=== PATIENT | female | born 1995 | race African-American/Black ===

== ENCOUNTER 2017-03-07 11:31 | Inpatient (IN) | payer OTHER ==
[~2017-03-07] VITALS: Ht 161.3 cm; Wt 68.9 kg
[2017-03-07 11:47] VITALS: BP 119/72; PULSE 65; RESP 15; TEMP 98; O2SAT 99
[2017-03-07 12:03] VITALS: BP 121/71; PULSE 70; RESP 18; TEMP 97.8; O2SAT 100
--- NOTE | 2017-03-07 14:09 | PD ---
HPI Chief Complaint: Suicide Ideation/Attempt Time Seen by Provider: 13:49 Travel History International Travel<30 days: No Contact w/Intl Traveler<30days: No Traveled to known affect area: No History of Present Illness HPI 21-year-old female presents to the emergency Department under Valdez act for depression, cutting herself. Patient states she has not cut herself before. She has superficial lacerations to the right forearm. She states she believes the symptoms. She states her tetanus immunization is up-to-date. Patient is tearful my exam. She will not tell me why she is depressed or crying. She does deny any suicidal or homicidal ideations to me. She states she smokes marijuana, denies any other illegal drugs. She does smoke injury go occasionally. She has no medical complaints at this time. She has no medical problems and takes no prescribed medications. She denies . [facility] Past Medical History LMP: 03/05/17 Social History Alcohol Use: Yes Tobacco Use: Yes Substance Use: Yes Allergies-Medications (Allergen,Severity, Reaction): Coded Allergies: No Known Allergies (Unverified , 03/07/17) Reported Meds & Prescriptions Reported Meds & Active Scripts Active No Active Prescriptions or Reported Medications Review of Systems Except as stated in HPI: all other systems reviewed are Neg Physical Exam Narrative GENERAL: Well-nourished, well-developed female patient, ambulatory. Afebrile. SKIN: Focused skin assessment warm/dry. Patient has superficial lacerations to right forearm that are not amenable to sutures. HEAD: Normocephalic. Atraumatic. EYES: No scleral icterus. No injection or drainage. NECK: Supple, trachea midline. No JVD or lymphadenopathy. CARDIOVASCULAR: Regular rate and rhythm without murmurs, gallops, or rubs. RESPIRATORY: Breath sounds equal bilaterally. No accessory muscle use. Lungs sounds are clear to auscultation. GASTROINTESTINAL: Abdomen soft, non-tender, nondistended. MUSCULOSKELETAL: No cyanosis, or edema. PSYCHIATRIC: No delusional thought processes. No hallucinations. Data Data Last Documented VS Vital Signs Date Time Temp Pulse Resp B/P (MAP) Pulse Ox O2 Delivery O2 Flow Rate FiO2 03/07/17 12:03 97.8 70 18 121/71 (88) 100 Room Air Orders Orders Complete Blood Count With Diff (03/07/17 13:48) Comprehensive Metabolic Panel (03/07/17 13:48) Beta Hcg (Quant/Titer) (03/07/17 13:48) Psych Screen (03/07/17 13:48) Drug Screen, Random Urine (03/07/17 13:48) Alcohol (Ethanol) (03/07/17 13:48) Labs Laboratory Tests Test 03/07/17 11:42 03/07/17 14:42 Urine Opiates Screen NEG Urine Barbiturates Screen NEG Urine Amphetamines Screen NEG Urine Benzodiazepines Screen NEG Urine Cocaine Screen NEG Urine Cannabinoids Screen POS White Blood Count 6.1 TH/MM3 Red Blood Count 4.25 MIL/MM3 Hemoglobin 11.2 GM/DL Hematocrit 35.1 % Mean Corpuscular Volume 82.7 FL Mean Corpuscular Hemoglobin 26.4 PG Mean Corpuscular Hemoglobin Concent 31.9 % Red Cell Distribution Width 15.1 % Platelet Count 245 TH/MM3 Mean Platelet Volume 8.9 FL Neutrophils (%) (Auto) 53.7 % Lymphocytes (%) (Auto) 36.7 % Monocytes (%) (Auto) 7.9 % Eosinophils (%) (Auto) 1.4 % Basophils (%) (Auto) 0.3 % Neutrophils # (Auto) 3.3 TH/MM3 Lymphocytes # (Auto) 2.3 TH/MM3 Monocytes # (Auto) 0.5 TH/MM3 Eosinophils # (Auto) 0.1 TH/MM3 Basophils # (Auto) 0.0 TH/MM3 CBC Comment DIFF FINAL Differential Comment Blood Urea Nitrogen 12 MG/DL Creatinine 0.69 MG/DL Random Glucose 80 MG/DL Total Protein 7.5 GM/DL Albumin 3.8 GM/DL Calcium Level 8.8 MG/DL Alkaline Phosphatase 58 U/L Aspartate Amino Transf (AST/SGOT) 18 U/L Alanine Aminotransferase (ALT/SGPT) 22 U/L Total Bilirubin 0.4 MG/DL Sodium Level 141 MEQ/L Potassium Level 3.6 MEQ/L Chloride Level 111 MEQ/L Carbon Dioxide Level 23.8 MEQ/L Anion Gap 6 MEQ/L Estimat Glomerular Filtration Rate 133 ML/MIN Human Chorionic Gonadotropin, Quant LESS THAN 1 MIU/ML Ethyl Alcohol Level LESS THAN 3 MG/DL MDM Medical Decision Making Medical Screen Exam Complete: Yes Emergency Medical Condition: Yes Medical Record Reviewed: Yes Differential Diagnosis Depression versus anxiety versus substance abuse Narrative Course 21-year-old female presents to the emergency Department under Valdez act for depression, suicidal ideation. CBC, CMP, beta hCG, urine drug screen, alcohol level are ordered and pending. CBC shows no acute abnormality. CMP shows no acute abnormality. Beta HCG is less than 1. UDS is positive for cannabinoids. Alcohol level is less than 3. Patient is medically cleared for psychiatric screening and disposition. Mental health screening discussed with the patient. Psychiatric screen ordered. Diagnosis Primary Impression: Depression Qualified Codes: F32.9 - Major depressive disorder, single episode, unspecified Additional Impression: Superficial laceration Scripts No Active Prescriptions or Reported Meds Condition: Stable Nilsa Johnson Mar 07, 2017 14:09
[2017-03-07 15:58] LABS: AUTOMATED NEUTROPHIL # 3.3 TH/MM3 (1.8-7.7); BASOPHIL % 0.3 % (0.0-2.0); EOSINOPHIL # 0.1 TH/MM3 (0-0.4); EOSINOPHIL % 1.4 % (0.0-4.0); HEMATOCRIT 35.1 % (35.0-46.0); HEMO FLAGS DIFF FINAL; LYMPH % 36.7 % (9.0-44.0); LYMPHOCYTE # 2.3 TH/MM3 (1.0-4.8); MEAN CELL VOLUME 82.7 FL (80.0-100.0); MEAN CORPUSCULAR HEMOGLOBIN 26.4 PG (27.0-34.0); MEAN CORPUSCULAR HGB CONC 31.9 % (32.0-36.0); MONO % 7.9 % (0.0-8.0); NEUT % 53.7 % (16.0-70.0); PLATELET COUNT 245 TH/MM3 (150-450); RED BLOOD COUNT 4.25 MIL/MM3 (4.00-5.30); RED CELL DISTRIBUTION WIDTH 15.1 % (11.6-17.2); WHITE BLOOD COUNT 6.1 TH/MM3 (4.0-11.0)
[2017-03-07 16:17] LABS: ALT (GPT) 22 U/L (9-42); ANION GAP 6 MEQ/L (5-15); AST (GOT) 18 U/L (16-38); BICARBONATE 23.8 MEQ/L (21.0-32.0); BLOOD UREA NITROGEN 12 MG/DL (7-18); CHLORIDE 111 MEQ/L (98-107); GLOMERULAR FILTRATION RATE 133 ML/MIN (>89); POTASSIUM 3.6 MEQ/L (3.5-5.1); SODIUM (NA) 141 MEQ/L (136-145)
[2017-03-07 16:18] LABS: ALCOHOL LESS THAN 3 MG/DL (0-5)
[2017-03-07 16:21] LABS: ALKALINE PHOSPHATASE 58 U/L (45-117); BETA HCG QUANT LESS THAN 1 MIU/ML (0-5); TOTAL BILIRUBIN ADULT 0.4 MG/DL (0.2-1.0)
[2017-03-07 19:14] VITALS: BP 123/82; PULSE 60; RESP 20; TEMP 98.2; O2SAT 99
[2017-03-07] MEDS ORDERED: diphenhydrAMINE HCL 50 MG CAP PO ONE (21:15)
[2017-03-08 06:12] VITALS: BP 110/66; PULSE 62; RESP 18
[2017-03-08 08:07] VITALS: BP 96/64; PULSE 77; RESP 16; O2SAT 100
[2017-03-08] MEDS ORDERED: ACETAMINOPHEN 325 MG TAB PO PRN (12:00)
[2017-03-08] MEDS ORDERED: diphenhydrAMINE HCL 50 MG/ML VIAL IM PRN (12:00)
[2017-03-08] MEDS ORDERED: LORazepam 1 MG TAB PO PRN (12:00)
[2017-03-08] MEDS ORDERED: MAGNESIUM HYDROXIDE SUSP 30 ML CUP PO PRN (12:00)
[2017-03-08] MEDS ORDERED: ALUMINUM/MAGNESIUM/SIMETH 30 ML CUP PO PRN (12:00)
[2017-03-08] MEDS ORDERED: LORazepam 2 MG/ML VIAL IM PRN (12:00)
--- NOTE | 2017-03-08 12:15 | HHI.HP ---
Provisional Diagnosis Admission Date [place] I. Adjustment disorder with depressed mood Certification of Person's Competence To Provide Express and Informed Consent I have personally examined Trixie Cheney , a person being served at [facility] on, Mar 08, 2017 12:02. Express and informed consent means consent voluntarily given in writing, by a competent person, after sufficient explanation and disclosure of the subject matter involved to enable the person to make a knowing and willful decision without any element of force, fraud, deceit, duress, or other form of constraint or coercion. This person is 18 years of age or older, is not now known to be incompetent to consent to treatment with a guardian advocate, and does not have a health care surrogate or proxy currently making medical treatment decisions. I have found this person to be one of the following: [X] Competent to provide express and informed consent, as defined above, for voluntary admission to this facility and is competent to provide express and informed consent for treatment. He/she has the consistent capacity to make well reasoned, willful, and knowing decisions concerning his or her medical or mental health treatment. The person fully and consistently understands the purpose of the admission for examination/placement and is fully capable of personally exercising all rights assured [place] Incompetent to provide express and informed consent to voluntary admission, and this is incompetent to provide express and informed consent to treatment. The person must be transferred to involuntary status and a petition for a guardian advocate filed with the Circuit Court. [] Refusing to provide express and informed consent to voluntary admission but is competent to provide express and informed consent for treatment. The person must be discharged or transferred to involuntary status. Form shall be completed within 24 hours of a person's arrival at the receiving facility and filed in the clinical record of each person: 1. Admitted on a voluntary basis 2. Permitted to provide express and informed consent to his/her own treatment 3. Allowed to transfer from involuntary to voluntary status 4. Prior to permitting a person to consent to his or her own treatment after having been previously found incompetent to consent to treatment. History of Present Illness Capacity: Has Capacity HPI 21-year-old female brought in under a Valdez act for cutting herself and making suicidal comments. 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 She was noted to have cut her wrists/forearm. She was noted to have several superficial lacerations on her right wrist. She admitted she was depressed and going through several issues, remarking that she "can't take it anymore". This physician also reviewed the emergency department note in which the patient was tearful and unable or unwilling to provide a significant history. When interviewed by the emergency department nurse, Yarely, the patient was again noted to be very tearful and highly distraught. When interviewed by this physician, the patient once again became very tearful and highly distraught. Apparently she and a boyfriend of several years broke up recently. The patient feels he is the only one that can help her. According to the patient's sister, the mother (who lives in [place]) and the sister are very concerned and have been trying to help the patient with her emotional instability. The patient does admit this is the first time she has cut her wrists. She states hospitalization will not help her. However, she is unable to contract for safety. She describes depressed mood, anhedonia, anxiety, insomnia, feelings of hopelessness, self-injurious behavior, vague suicidal threats, impaired concentration and diminished energy. She is smoking marijuana on a daily basis but denies other drug or alcohol abuse. Review of Systems Psychiatric: COMPLAINS OF: Anxiety, Depression Except as stated in HPI: all other systems reviewed are Neg Past Psych History Psychological trauma history Unknown regarding psychological trauma. Patient received psychological counseling this past summer. Violence risk - others (6 mos) Minimal Violence risk - self (6 mos) High Substance Abuse History Drugs/Alcohol past 12 months Patient abusing marijuana on almost a daily basis. Past Family Social History Coded Allergies: No Known Allergies (Unverified , 03/07/17) No Active Prescriptions or Reported Meds Family Psych History Positive for mood and anxiety disorders. Social History Sophomore at [employer]. Not doing well in school. Does not have close relationships with mother and sister by her own report. Apparently felt close only with boyfriend. States she broke up with him because he lied to her. Patient's boyfriend is not telling her where he is because she has apparently called him multiple times. Mother works for [employer] in [place]. Patient does not feel mother's support is helpful. Patient's sister contacted and sister is also a student at [employer] and the patient's roommate. Sis does not feel capable of helping patient. Patient's Strengths (min. 2) Verbal and has access to healthcare. Physical Exam GENERAL: SKIN: Warm and dry. HEAD: Normocephalic. EYES: No scleral icterus. No injection or drainage. NECK: Supple, trachea midline. No JVD or lymphadenopathy. CARDIOVASCULAR: Regular rate and rhythm without murmurs, gallops, or rubs. RESPIRATORY: Breath sounds equal bilaterally. No accessory muscle use. GASTROINTESTINAL: Abdomen soft, non-tender, nondistended. MUSCULOSKELETAL: No cyanosis, or edema. BACK: Nontender without obvious deformity. No CVA tenderness. Vital Signs Vital Signs Date Time Temp Pulse Resp B/P (MAP) Pulse Ox O2 Delivery O2 Flow Rate FiO2 03/08/17 08:07 77 16 96/64 (75) 100 Room Air 03/07/17 19:14 98.2 Lab Results Test 03/07/17 14:42 White Blood Count 6.1 TH/MM3 Red Blood Count 4.25 MIL/MM3 Hemoglobin 11.2 GM/DL Hematocrit 35.1 % Mean Corpuscular Volume 82.7 FL Mean Corpuscular Hemoglobin 26.4 PG Mean Corpuscular Hemoglobin Concent 31.9 % Red Cell Distribution Width 15.1 % Platelet Count 245 TH/MM3 Mean Platelet Volume 8.9 FL Neutrophils (%) (Auto) 53.7 % Lymphocytes (%) (Auto) 36.7 % Monocytes (%) (Auto) 7.9 % Eosinophils (%) (Auto) 1.4 % Basophils (%) (Auto) 0.3 % Neutrophils # (Auto) 3.3 TH/MM3 Lymphocytes # (Auto) 2.3 TH/MM3 Monocytes # (Auto) 0.5 TH/MM3 Eosinophils # (Auto) 0.1 TH/MM3 Basophils # (Auto) 0.0 TH/MM3 CBC Comment DIFF FINAL Differential Comment Blood Urea Nitrogen 12 MG/DL Creatinine 0.69 MG/DL Random Glucose 80 MG/DL Total Protein 7.5 GM/DL Albumin 3.8 GM/DL Calcium Level 8.8 MG/DL Alkaline Phosphatase 58 U/L Aspartate Amino Transf (AST/SGOT) 18 U/L Alanine Aminotransferase (ALT/SGPT) 22 U/L Total Bilirubin 0.4 MG/DL Sodium Level 141 MEQ/L Potassium Level 3.6 MEQ/L Chloride Level 111 MEQ/L Carbon Dioxide Level 23.8 MEQ/L Anion Gap 6 MEQ/L Estimat Glomerular Filtration Rate 133 ML/MIN Human Chorionic Gonadotropin, Quant LESS THAN 1 MIU/ML Ethyl Alcohol Level LESS THAN 3 MG/DL Mental Status Examination Appearance: Appropriate Consciousness: Alert Orientation: x4 Motor Activity: Normal gait Speech: Other Language: Adequate Fund of Knowledge: Adequate Attention and Concentration: Adequate, Inadequate Memory: Unremarkable Mood: Sad, Anxious Affect: Appropriate Thought Process & Associations: Intact Thought Content: Appropriate Hallucination Type: None Delusion Type: None Suicidal Ideation: Yes Suicidal Plan: Yes Suicidal Intention: Yes Homicidal Ideation: No Homicidal Plan: No Homicidal Intention: No Insight: Fair Judgment: Impulsive Assessment & Plan Problem List: (1) Adjustment disorder with depressed mood ICD Codes: F43.21 - Adjustment disorder with depressed mood Assessment & Plan Estimated LOS: days. 21-year-old female presents under a Valdez act for cutting her wrists and making suicidal threats. Patient is at high risk for self-harm for multiple reasons. She is young and impulsive. She recently broke up with her only boyfriend. She has not allow herself to have a support system. She is smoking marijuana daily. She cut herself for the first time. She is feeling hopeless and helpless and stating that nothing will help her. For this reason she is being admitted for further evaluation and treatment. This physician has ordered a CBC and comprehensive metabolic panel to determine if any infectious process or metabolic process is causing or contributing to the patient's mood disorder. Additionally, this physician has ordered thyroid stimulating hormone level, vitamin B-12 level and vitamin D level to determine if deficiencies in these areas are causing her contribute into her depression. Additionally, this physician has ordered an EKG to determine the patient's cardiac conduction status prior to instituting any psychotropic medicines which might alter her cardiac conduction system. This physician spoke to the patient' s nurse, Yarely, regarding her recent behavior and the nurse also finds the patient emotionally distraught, tearful and unable to contract for safety. This physician is also asking case management to become involved to obtain further information and assist with information gathering. Ubaldo Dawkins MD Mar 08, 2017 12:15
[2017-03-08] MEDS: traZODone HCL 50 MG TAB PO PRN (22:44)
[2017-03-09 06:17] VITALS: BP 110/56; PULSE 65; RESP 18; TEMP 98.3; O2SAT 100
[2017-03-09 10:48] LABS: AUTOMATED NEUTROPHIL # 6.4 TH/MM3 (1.8-7.7); BASOPHIL % 0.2 % (0.0-2.0); EOSINOPHIL # 0.1 TH/MM3 (0-0.4); EOSINOPHIL % 0.8 % (0.0-4.0); HEMATOCRIT 37.4 % (35.0-46.0); HEMO FLAGS DIFF FINAL; LYMPH % 29.1 % (9.0-44.0); LYMPHOCYTE # 2.9 TH/MM3 (1.0-4.8); MEAN CELL VOLUME 82.2 FL (80.0-100.0); MEAN CORPUSCULAR HEMOGLOBIN 26.6 PG (27.0-34.0); MEAN CORPUSCULAR HGB CONC 32.3 % (32.0-36.0); MONO % 5.6 % (0.0-8.0); NEUT % 64.3 % (16.0-70.0); PLATELET COUNT 270 TH/MM3 (150-450); RED BLOOD COUNT 4.55 MIL/MM3 (4.00-5.30); RED CELL DISTRIBUTION WIDTH 15.1 % (11.6-17.2)
[2017-03-09 11:13] LABS: ALT (GPT) 16 U/L (9-42); ANION GAP 12 MEQ/L (5-15); AST (GOT) 18 U/L (16-38); BICARBONATE 21.1 MEQ/L (21.0-32.0); BLOOD UREA NITROGEN 16 MG/DL (7-18); CHLORIDE 106 MEQ/L (98-107); GLOMERULAR FILTRATION RATE 130 ML/MIN (>89); POTASSIUM 3.4 MEQ/L (3.5-5.1); SODIUM (NA) 139 MEQ/L (136-145)
[2017-03-09 11:39] LABS: ALKALINE PHOSPHATASE 63 U/L (45-117); HDL CHOLESTEROL 48.3 MG/DL (40.0-60.0); LDL CHOLESTEROL 116 MG/DL (0-99); TOTAL BILIRUBIN ADULT 0.7 MG/DL (0.2-1.0)
[2017-03-09] MEDS: clonazePAM 0.5 MG TAB PO SCH ×2 (11:45→21:09)
[2017-03-09] MEDS ORDERED: FLUoxetine HCL 10 MG CAP PO ONE (11:45)
--- NOTE | 2017-03-09 14:00 | EKG ---
Date Performed: 03/09/2017 Time Performed: 09:04:39 PTAGE: 21 years EKG: Sinus rhythm WITH SINUS ARRHYTHMIA NORMAL ECG NO PREVIOUS TRACING DOCTOR: Dave Phan Interpretating Date/Time 03/09/2017 13:58:26
--- NOTE | 2017-03-09 14:04 | HHI.PYPN ---
Subjective Remarks Patient is a 21-year-old woman, single, unemployed supported by her parents, currently sophomore in college, domiciled in a dorm with her sister, with a past psychiatric history, recent engagement in therapy with a psychologist last summer in [place] for depression, was brought into the ER under Valdez act for depression, recent cutting to her right forearm along with suicide ideations in the context of a recent breakup with her boyfriend and daily marijuana use. As per initial note, patient stated that police were sent to her college room stated that "I can't take anymore" and had cuts to her right forearm and wrist was noted to be distraught and tearful and unable to contract for safety. Patient was seen today for follow-up, lying in hospital bed, cooperative today. Patient stated that she had been sleeping okay but has noted to have decreased appetite, energy, concentration, feelings of guilt, feeling sad and depressed since" worsening recently due to her recent breakup along with suicidal ideations. Patient states that she does not understand why her boyfriend had lied to her we has she had been for the past 3 years feels that she has no one for support. Patient states that she had been feeling sad and depressed since middle school as a being a victim of bullying which at that times she states that her sister did not provide support or defend her at that time. 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 Patient states that she no longer enjoys playing the [employer] feels that now it is an obligation for her to remain in college. At this time patient continues to report feeling depressed, continues to have a suicide ideations, is able contract for safety here on the unit and denies any perceptual services or delusions at this time. Patient reports marijuana use daily since for the past 3 years usually 2-3 joints a day last use was 2 days ago. Collateral contact: Hillary Hightower (sister) - [phone] Review of Systems Except as stated in HPI: all other systems reviewed are Neg Mental Status Examination Appearance: Appropriate Consciousness: Alert Orientation: x4 Motor Activity: Normal gait Speech: Other Language: Adequate Fund of Knowledge: Adequate Attention and Concentration: Adequate, Inadequate Memory: Unremarkable Mood: Sad, Anxious Affect: Sad, Labile, Other (crying throughout interview) Thought Process & Associations: Intact, Linear Thought Content: Appropriate Hallucination Type: None Delusion Type: None Suicidal Ideation: Yes Suicidal Plan: Yes (denies at this time) Suicidal Intention: Yes (denies at this time) Homicidal Ideation: No Homicidal Plan: No Homicidal Intention: No Insight: Fair Judgment: Impulsive Results Labs Labs reviewed. Test 03/09/17 10:09 White Blood Count 10.0 TH/MM3 Red Blood Count 4.55 MIL/MM3 Hemoglobin 12.1 GM/DL Hematocrit 37.4 % Mean Corpuscular Volume 82.2 FL Mean Corpuscular Hemoglobin 26.6 PG Mean Corpuscular Hemoglobin Concent 32.3 % Red Cell Distribution Width 15.1 % Platelet Count 270 TH/MM3 Mean Platelet Volume 8.7 FL Neutrophils (%) (Auto) 64.3 % Lymphocytes (%) (Auto) 29.1 % Monocytes (%) (Auto) 5.6 % Eosinophils (%) (Auto) 0.8 % Basophils (%) (Auto) 0.2 % Neutrophils # (Auto) 6.4 TH/MM3 Lymphocytes # (Auto) 2.9 TH/MM3 Monocytes # (Auto) 0.6 TH/MM3 Eosinophils # (Auto) 0.1 TH/MM3 Basophils # (Auto) 0.0 TH/MM3 CBC Comment DIFF FINAL Differential Comment Blood Urea Nitrogen 16 MG/DL Creatinine 0.70 MG/DL Random Glucose 58 MG/DL Total Protein 8.1 GM/DL Albumin 4.2 GM/DL Calcium Level 9.1 MG/DL Alkaline Phosphatase 63 U/L Aspartate Amino Transf (AST/SGOT) 18 U/L Alanine Aminotransferase (ALT/SGPT) 16 U/L Total Bilirubin 0.7 MG/DL Sodium Level 139 MEQ/L Potassium Level 3.4 MEQ/L Chloride Level 106 MEQ/L Carbon Dioxide Level 21.1 MEQ/L Anion Gap 12 MEQ/L Estimat Glomerular Filtration Rate 130 ML/MIN Triglycerides Level 136 MG/DL Cholesterol Level 191 MG/DL LDL Cholesterol 116 MG/DL HDL Cholesterol 48.3 MG/DL Cholesterol/HDL Ratio 3.95 RATIO Vitamin B12 Level 621 PG/ML 25-Hydroxy Vitamin D Total 26.6 ng/ML Thyroid Stimulating Hormone 3rd Gen 0.830 uIU/ML Vitals/IOs Vital Signs Date Time Temp Pulse Resp B/P (MAP) Pulse Ox O2 Delivery O2 Flow Rate FiO2 03/09/17 06:17 98.3 65 18 110/56 (74) 100 03/08/17 08:07 Room Air Intake and Output 03/09/17 03/09/17 03/10/17 08:00 16:00 00:00 Intake Total 0 ml Balance 0 ml Assessment & Plan Problem List: (1) Adjustment disorder with depressed mood ICD Codes: F43.21 - Adjustment disorder with depressed mood Assessment & Plan She does and I recommend woman with no formal past psychiatric history other recently seeing a psychologist last summer for depression who was brought to the [facility] for suicidal ideations, cutting her right forearm, depressive symptoms in the context of recent breakup with her boyfriend and daily marijuana use. Patient at this time agrees to voluntary admission. We'll start Loxitane 10 mg by mouth once today and 20 mg by mouth daily starting tomorrow. We'll also begin clonazepam 0.5 mg by mouth every 12 this patient noted to be very anxious. Collateral information pending. Recognitions as per primary medical team. Discharge planning in progress Justification for Cont. Inpt. At risk for further decompensation if at lower level of care Discharge Planning Patient to return back to her residence once psychiatrically cleared. Asad García MD Mar 09, 2017 14:04
[2017-03-09 18:00] VITALS: BP 112/55; PULSE 82; RESP 16; TEMP 98.1; O2SAT 100
[2017-03-09 18:03] LABS: HEMOGLOBIN A1a 1.2 %; HEMOGLOBIN A1b 1.4 %; HEMOGLOBIN Ao 87.4 %; HEMOGLOBIN LA1C 1.4 %
[2017-03-09] MEDS: traZODone HCL 50 MG TAB PO PRN (22:08)
[2017-03-10 06:04] VITALS: PULSE 65; RESP 17; TEMP 97.5; O2SAT 98
[2017-03-10] MEDS: FLUoxetine HCL 20 MG CAP PO SCH (09:00)
[2017-03-10] MEDS: clonazePAM 0.5 MG TAB PO SCH ×2 (09:01→21:29)
--- NOTE | 2017-03-10 14:41 | PD.TTN ---
Patient Problems 1. Discharge planning 2. Medication compliance 3. Knowledge deficit 4. Lack of coping skills Progress Toward Goals Provider Present: Dr. Elizabeth García Provider Input: Dr. García's met to discuss patient's treatment plan, discharge, and medication. Patient is refusing medication. Patient continues to present depressed, no insight. Continue with treatment Nurse(s) Input: Patient's nurse Yumiko reports patient is depressed, tearful, refused her medication. Seclusive to room, enjoys writing/journaling Psychiatric Counselors Present: [facility] Input: Patient seen in her bed. Patient presents childlike, depressed, tearful, sad, affect flat. Patient 's speech is limited, soft, clear, and pressured. Patient denies suicidal and homicidal ideation. Patient made no eye contact. Patient has poor insight into her situation. Patient does not present with internal stimulation. Patient is non compliant with medication Group Spec/RT/OT/IRWIN Present: DC Ortega Group Spec/RT/OT/IRWIN Input: Patient does not attend without encouragement, seclusive to room, tearful Cher [facility] Mar 10, 2017 14:41
--- NOTE | 2017-03-10 15:00 | HHI.PYPN ---
Subjective Remarks Patient seen for follow-up, chart reviewed. Discussion with the staff reported the patient had refused medications yesterday, continue to be noted to be sad, withdrawn, seclusive to her room. Patient seen sitting in hospital bed writing extensively what appears to be several letters to her boyfriend. Patient noted to be dysphoric, poor eye contact, crying during interview. Patient states that she continues to feel depressed, as a dull that she needs to feel better is to get back with her boyfriend. Patient states that she is the only person that she can talk to and that understands her. Patient states that there is no one else that she can rely on for support. Patient states he spoke with her sister yesterday but states that it was not a supportive conversation. Patient continues to have decreased appetite and requires a lot of encouragement for her to eat her meals. Patient states having slept but states that her mood at this time is "a little better". Discussion about starting patient on antidepressant was reviewed again with the patient which she agreed to was noted to have perception that her well-being was dependent on her rehabilitation with her boyfriend. Patient preoccupied with coming into contact with boyfriend and despite having had recent conversation with boyfriend 's mother about patient staying away from her son she continues to want to reach out to him. Patient this time has very poor insight into her depression and noted to be anhedonic, some psychomotor motor retardation with episodes of crying throughout interview. Review of Systems Except as stated in HPI: all other systems reviewed are Neg Mental Status Examination Appearance: Appropriate Consciousness: Alert Orientation: x4 Motor Activity: Normal gait Speech: Other Language: Adequate Fund of Knowledge: Adequate Attention and Concentration: Inadequate Memory: Unremarkable Mood: Sad, Anxious Affect: Sad, Labile, Other (crying throughout interview) Thought Process & Associations: Intact, Linear Thought Content: Preoccupations (perseverative on wanting to contact boyfriend) Hallucination Type: None Delusion Type: None Suicidal Ideation: Yes Suicidal Plan: Yes (denies at this time) Suicidal Intention: Yes (denies at this time) Homicidal Ideation: No Homicidal Plan: No Homicidal Intention: No Insight: Poor Judgment: Impulsive Results Vitals/IOs Vital Signs Date Time Temp Pulse Resp B/P (MAP) Pulse Ox O2 Delivery O2 Flow Rate FiO2 03/10/17 06:04 97.5 65 17 98 03/08/17 08:07 Room Air Intake and Output 03/10/17 03/10/17 03/11/17 08:00 16:00 00:00 Intake Total 120 ml Balance 120 ml Assessment & Plan Problem List: (1) Adjustment disorder with depressed mood ICD Codes: F43.21 - Adjustment disorder with depressed mood Assessment & Plan Patient at this time continues to endorse depressive symptoms and noted to be very dysphoric with catatonia, poor occasional intake requiring a lot of encouragement for her to eat as well as labile mood with episodes of crying. Patient has poor insight into her current depression as well as the severity of her recent self-injurious behavior and preoccupied with her recent relationship with her boyfriend. Patient currently with the perception that he is her only support despite her having a sister and mother. Discussion about the importance of starting treatment was reviewed with patient which she agreed to start fluoxetine as well as encouraged to participate in groups and activities while on the unit. Patient was noted later after interview to be screaming her room feeling upset that she is in the hospital which she had be redirected. Collateral from mother pending. Discharge planning in progress Justification for Cont. Inpt. At risk for further decompensation if at lower level of care Discharge Planning Patient to return back to her residence once psychiatrically cleared Asad García MD Mar 10, 2017 15:00
[2017-03-10 17:07] VITALS: BP 118/58; PULSE 109; RESP 16; TEMP 98.3; O2SAT 98
[2017-03-10] MEDS ORDERED: FLUoxetine HCL 10 MG CAP PO ONE (18:00)
[2017-03-10] MEDS: traZODone HCL 50 MG TAB PO PRN (22:35)
[2017-03-11 06:15] VITALS: BP 101/54; PULSE 64; RESP 16; TEMP 98.2; O2SAT 98
[2017-03-11] MEDS: clonazePAM 0.5 MG TAB PO SCH ×2 (09:27→21:00)
[2017-03-11] MEDS: FLUoxetine HCL 20 MG CAP PO SCH (09:28)
--- NOTE | 2017-03-11 10:50 | HHI.PYPN ---
Subjective Remarks Patient seen for follow-up, chart reviewed. Discussion with nursing staff stated that patient continues to be isolative, started medications yesterday continue to be noted to be very depressed. Patient found lying in hospital bed with covers over her head was able to interact with interview minimally with poor eye contact. Patient states that she continues to feel depressed, sleeping better, continues to be perseverative on her relationship with her boyfriend. Patient states that she spoke with her sister yesterday which she started to feel slightly more support as well as spoken with her mother which she states went "fine". Patient continues to be very guarded and noted to require a lot of encouragement to participate in groups activities as well as meals. Review of Systems Except as stated in HPI: all other systems reviewed are Neg Mental Status Examination Appearance: Appropriate Consciousness: Alert Orientation: x4 Motor Activity: Normal gait Speech: Other Language: Adequate Fund of Knowledge: Adequate Attention and Concentration: Inadequate Memory: Unremarkable Mood: Sad Affect: Sad, Other (guarded) Thought Process & Associations: Intact, Linear Thought Content: Preoccupations (perseverative on wanting to contact boyfriend) Hallucination Type: None Delusion Type: None Suicidal Ideation: Yes Suicidal Plan: Yes (denies at this time) Suicidal Intention: Yes (denies at this time) Homicidal Ideation: No Homicidal Plan: No Homicidal Intention: No Insight: Poor Judgment: Impulsive Results Vitals/IOs Vital Signs Date Time Temp Pulse Resp B/P (MAP) Pulse Ox O2 Delivery O2 Flow Rate FiO2 03/11/17 06:15 98.2 64 16 101/54 (70) 98 03/08/17 08:07 Room Air Assessment & Plan Problem List: (1) Adjustment disorder with depressed mood ICD Codes: F43.21 - Adjustment disorder with depressed mood Assessment & Plan Patient at this time continues to be noted to be very depressed, dysphoric, continues to isolate her room, requiring a lot of encouragement to participate in meals as well as in groups and activities which she has not yet participated in. Patient accepted to start medications yesterday and denies any adverse drug reactions. We'll continue current treatment for now. Continue to monitor mood and behavior. Continue to encourage patient to maintain personal hygiene and participate in groups activities while on the unit. Continue to encourage patient to be out of room more and less isolative. Discharge planning in progress Justification for Cont. Inpt. At risk for further decompensation if at lower level of care Discharge Planning Patient to return back to her residence once psychiatrically cleared Asad García MD Mar 11, 2017 10:50
[2017-03-12 05:25] VITALS: BP 129/72; PULSE 86; RESP 18; TEMP 97.7; O2SAT 99
[2017-03-12] MEDS: clonazePAM 0.5 MG TAB PO SCH ×2 (09:00→20:52)
[2017-03-12] MEDS: FLUoxetine HCL 20 MG CAP PO SCH (09:00)
--- NOTE | 2017-03-12 09:36 | HHI.PYPN ---
Subjective Remarks Patient seen for follow-up, chart review. After that she report patient was moved to 2700 units is a higher acuity unit due to patient yesterday having been yelling and screaming stating "If I can't be with my boyfriend I'll kill myself" which patient was required to be under close observation area it was reported the patient refused medication last night as well. Patient found lying in hospital bed noted to be asleep was able to wake up for interview with technical document writer and therapist today. Patient states that she was upset yesterday and admitted to yelling and screaming but did not elaborate to reasons why. She only states that she is upset that she is still here. Patient reports having gone to 1 group yesterday but has not been out for meals. Patient continued to do very tearful throughout interview denies any suicide ideation continues report feeling very depressed and wanting to be with her boyfriend. Patient was encouraged to continue with meals as well as dissipating groups and activities which she states she will try to do today. Review of Systems Except as stated in HPI: all other systems reviewed are Neg Mental Status Examination Appearance: Appropriate Consciousness: Alert Orientation: x4 Motor Activity: Normal gait Speech: Slow Language: Adequate Fund of Knowledge: Adequate Attention and Concentration: Inadequate Memory: Unremarkable Mood: Sad Affect: Sad, Other (tearful throughout the interview) Thought Process & Associations: Intact, Linear Thought Content: Preoccupations (perseverative on wanting to contact boyfriend) Hallucination Type: None Delusion Type: None Suicidal Ideation: Yes Suicidal Plan: No Suicidal Intention: Yes (recently stated that she wanted to kill herself if she was not with her boyfriend) Homicidal Ideation: No Homicidal Plan: No Homicidal Intention: No Insight: Poor Judgment: Impulsive Results Vitals/IOs Vital Signs Date Time Temp Pulse Resp B/P (MAP) Pulse Ox O2 Delivery O2 Flow Rate FiO2 03/12/17 05:25 97.7 86 18 129/72 (91) 99 03/08/17 08:07 Room Air Assessment & Plan Problem List: (1) Adjustment disorder with depressed mood ICD Codes: F43.21 - Adjustment disorder with depressed mood Assessment & Plan Patient at this time continues to be noted very depressed, tearful throughout interview, not coming out of bed for meals and requiring a lot of encouragement to do so was able to attend a group yesterday. Patient had to be moved to a closer observation room due to her recent statements of her wanting to kill herself if she was not going to be with her boyfriend yesterday. Patient continues to be anhedonic, requiring a lot of encouragement for ADLs, not eating at this time and isolative to her room. Patient recently started fluoxetine yesterday and therefore continue current dose for now. Continue rest of medications. Continue encourage patient to maintain personal hygiene and participate in groups and activities while on the unit. Will consider moving patient back to a lower unit if she observed to be in better behavioral control and not making suicidal statements. Discharge planning in progress Justification for Cont. Inpt. At risk for further decompensation event lower level of care Discharge Planning Patient to return back to her residence once psychiatrically stable Asad García MD Mar 12, 2017 09:36
[2017-03-12 18:00] VITALS: BP 128/65; PULSE 91; RESP 18; TEMP 98.3; O2SAT 98
[2017-03-12] MEDS: traZODone HCL 50 MG TAB PO PRN (20:52)
[2017-03-12] MEDS: diphenhydrAMINE HCL 50 MG CAP PO PRN (22:25)
[2017-03-13 05:49] VITALS: BP 108/57; PULSE 57; RESP 18; TEMP 97.6; O2SAT 99
[2017-03-13] MEDS: FLUoxetine HCL 20 MG CAP PO SCH (09:13)
[2017-03-13] MEDS: clonazePAM 0.5 MG TAB PO SCH ×2 (09:13→21:00)
--- NOTE | 2017-03-13 12:41 | HHI.PYPN ---
Subjective Remarks Pt seen and discussed with staff. Chart reviewed. She has been cooperative with care and compliant with medications. She has been withdrawn and quiet. She denies SI/HI today. No aggression or agitation today. Review of Systems Psychiatric: COMPLAINS OF: Depression Mental Status Examination Appearance: Appropriate Consciousness: Alert Orientation: x4 Motor Activity: Normal gait Speech: Slow Language: Adequate Fund of Knowledge: Adequate Attention and Concentration: Adequate Memory: Unremarkable Mood: Sad Affect: Sad, Other (tearful throughout the interview) Thought Process & Associations: Intact, Linear Hallucination Type: None Delusion Type: None Suicidal Ideation: No Suicidal Plan: No Suicidal Intention: No (recently stated that she wanted to kill herself if she was not with her boyfriend) Homicidal Ideation: No Homicidal Plan: No Homicidal Intention: No Insight: Poor Judgment: Impulsive Results Vitals/IOs Vital Signs Date Time Temp Pulse Resp B/P (MAP) Pulse Ox O2 Delivery O2 Flow Rate FiO2 03/13/17 05:49 97.6 57 18 108/57 (74) 99 Assessment & Plan Problem List: (1) Adjustment disorder with depressed mood ICD Codes: F43.21 - Adjustment disorder with depressed mood Assessment & Plan continue current tx plan. Estimated LOS: days Justification for Cont. Inpt. monitoring for Abbie Corado MD Mar 13, 2017 12:41
[2017-03-13 17:54] VITALS: BP 109/57; PULSE 82; RESP 18; TEMP 97.5; O2SAT 100
[2017-03-13] MEDS: diphenhydrAMINE HCL 50 MG CAP PO PRN (21:50)
[2017-03-14 05:44] VITALS: BP 93/53; PULSE 68; RESP 16; TEMP 97.1; O2SAT 96
[2017-03-14] MEDS: clonazePAM 0.5 MG TAB PO SCH ×2 (08:21→20:44)
[2017-03-14] MEDS: FLUoxetine HCL 20 MG CAP PO SCH (08:21)
--- NOTE | 2017-03-14 10:43 | HHI.PYPN ---
Subjective Remarks Pt seen and discussed with staff. She has been quiet but has been interacting more with others. She has been compliant with medications. She reports depression is improving. She reports that she is planning to spend time bonding with her sister upon discharge to avoid thinking about ex-boyfriend. No SI/HI Mental Status Examination Appearance: Appropriate Consciousness: Alert Orientation: x4 Motor Activity: Normal gait Speech: Slow Language: Adequate Fund of Knowledge: Adequate Attention and Concentration: Adequate Memory: Unremarkable Mood: Sad Affect: Sad, Other (tearful throughout the interview) Thought Process & Associations: Intact, Linear Thought Content: Appropriate Hallucination Type: None Delusion Type: None Suicidal Ideation: No Suicidal Plan: No Suicidal Intention: No (recently stated that she wanted to kill herself if she was not with her boyfriend) Homicidal Ideation: No Homicidal Plan: No Homicidal Intention: No Insight: Fair Judgment: Impulsive Results Vitals/IOs Vital Signs Date Time Temp Pulse Resp B/P (MAP) Pulse Ox O2 Delivery O2 Flow Rate FiO2 03/14/17 05:44 97.1 68 16 93/53 (66) 96 Assessment & Plan Problem List: (1) Adjustment disorder with depressed mood ICD Codes: F43.21 - Adjustment disorder with depressed mood Assessment & Plan Pt improving. Continue current tx plan, Estimated LOS: days Justification for Cont. Inpt. risk of decompensation Abbie Ga MD Mar 14, 2017 10:43
[2017-03-14 15:45] VITALS: BP 125/70; PULSE 72; RESP 18; TEMP 98.1; O2SAT 100
[2017-03-15 06:00] VITALS: BP 107/61; PULSE 63; RESP 17; TEMP 98.3; O2SAT 97
[2017-03-15] MEDS: FLUoxetine HCL 20 MG CAP PO SCH (09:00)
[2017-03-15] MEDS: clonazePAM 0.5 MG TAB PO SCH ×2 (09:00→21:09)
--- NOTE | 2017-03-15 10:44 | PD.TTN ---
Patient Problems 1. Discharge planning 2. Medication compliance 3. Knowledge deficit 4. Lack of coping skills Progress Toward Goals Provider Present: Dr. Elizabeth García Provider Input: Dr. García's met to discuss patient's treatment plan, discharge, and medication. Patient is refusing medication. Patient continues to present depressed, no insight. Continue with treatment 03/15 patient had been transferred to 2700 unit after emotional outburst on 2600 unit. Patient is behavioral and unable to provide insight upon admission. Patient is noncooperative and recently has been taking medications on the unit. Patient denies suicidal ideations or wanting to self harm. Nurse(s) Input: Patient's nurse Yumiko reports patient is depressed, tearful, refused her medication. Seclusive to room, enjoys writing/journaling 03/15 Patient continues to be seclusive to room and somewhat noncompliant. patient displays behavioral issues and is unwilling to participate with peers on unit. patient is selective with food consumption. denies side effects, but endorses feelings of saddnes. Psychiatric Counselors Present: [facility] Psych Therapist Input: Patient seen in her bed. Patient presents childlike, depressed, tearful, sad, affect flat. Patient 's speech is limited, soft, clear, and pressured. Patient denies suicidal and homicidal ideation. Patient made no eye contact. Patient has poor insight into her situation. Patient does not present with internal stimulation. Patient is non compliant with medication 03/15 Patient continues to be seclusive to room and is unwilling to partake in any peer interaction. Patient is focused on her situation, and has poor eye contact and poor insight. Group Spec/RT/OT/IRWIN Present: DC Ortega Group Spec/RT/OT/IRWIN Input: Patient does not attend without encouragement, seclusive to room, tearful 03/15 patient does not attend group and needs encouragement. Janice Ramirez [facility] Mar 15, 2017 10:44
--- NOTE | 2017-03-15 13:05 | HHI.PYPN ---
Subjective Remarks Patient seen for follow-up, chart review. Discussion with nursing staff reported the patient has been noted to have some improvement mood, better eye contact, less isolative. Patient found in the room was able to engage in interview with chief writer and nurse. Patient states that her weekend went "good", reporting having slept better with good appetite and mood is improving although continues to feel sad and depressed about her current rehabilitation with her boyfriend. Patient reports having gone to groups which she enjoyed. Patient states that she no longer has suicidal ideation at this time. Patient reports having spoken with her sister who she feels supported but she states that she would be "okay" if she returned to her boyfriend during the holidays. Patient continues to be noted to be very dysphoric and distressed when talking about how things ended with her boyfriend and began crying again. Patient continues to blame herself for her failed relationship, continues to have poor self-esteem , and believes that she needs to be better for him. Patient noted to be continually distressed about not being with her boyfriend Mental Status Examination Appearance: Appropriate Consciousness: Alert Orientation: x4 Motor Activity: Normal gait Speech: Slow Language: Adequate Fund of Knowledge: Adequate Attention and Concentration: Adequate Memory: Unremarkable Mood: Sad Affect: Sad, Other (tearful during interview with speaking about her boyfriend) Thought Process & Associations: Intact, Linear Thought Content: Appropriate Hallucination Type: None Delusion Type: None Suicidal Ideation: No Suicidal Plan: No Suicidal Intention: No Homicidal Ideation: No Homicidal Plan: No Homicidal Intention: No Insight: Fair (improving) Judgment: Impulsive Results Vitals/IOs Vital Signs Date Time Temp Pulse Resp B/P (MAP) Pulse Ox O2 Delivery O2 Flow Rate FiO2 03/15/17 06:00 98.3 63 17 107/61 (76) 97 Intake and Output 03/15/17 03/15/17 03/16/17 08:00 16:00 00:00 Intake Total 0 ml 240 ml Balance 0 ml 240 ml Assessment & Plan Problem List: (1) Adjustment disorder with depressed mood ICD Codes: F43.21 - Adjustment disorder with depressed mood Assessment & Plan Patient at this time noted with improved mood state she is less depressed but no longer having suicidal ideations. Patient continued to be very tearful and crying when speaking about her ex-boyfriend, continues with poor self-esteem believing that her failed relationship was her fault; limited insight to her depression but improving. We'll increase fluoxetine to 30 mg by mouth daily for depression. Continue rest of medications. Discharge planning in progress. Justification for Cont. Inpt. At risk for further decompensation if it lower level of care Discharge Planning Patient to return back to her residence with her sister once psychiatrically stable Asad García MD Mar 15, 2017 13:05
[2017-03-15] MEDS ORDERED: FLUoxetine HCL 10 MG CAP PO ONE (13:15)
[2017-03-15 18:05] VITALS: BP 107/61; PULSE 63; RESP 18; TEMP 98.3; O2SAT 100
[2017-03-16 05:35] VITALS: BP 102/60; PULSE 68; RESP 17; TEMP 98.5; O2SAT 99
[2017-03-16] MEDS: clonazePAM 0.5 MG TAB PO SCH (08:28)
[2017-03-16] MEDS ORDERED: FLUoxetine HCL 10 MG CAP PO SCH (09:00)
[2017-03-16] MEDS ORDERED: CLON.5 PO (11:57)
[2017-03-16] MEDS ORDERED: FLUO10CA4 PO (11:57)
--- NOTE | 2017-03-16 12:10 | HHI.DS ---
Psychiatry Discharge Summary Inpatient Psychiatric care?: Yes Advance Directive: No Reason Not Provided: Due to Patient Condition Mental Health AdvanceDirective: No Health Care Proxy: No Admission Admission Date Mar 08, 2017 at 11:59 Admission Diagnosis: (1) Adjustment disorder with depressed mood ICD Code: F43.21 - Adjustment disorder with depressed mood Brief History 21-year-old female brought in under a [place] act for cutting herself and making suicidal comments. 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 She was noted to have cut her wrists/forearm. She was noted to have several superficial lacerations on her right wrist. She admitted she was depressed and going through several issues, remarking that she "can't take it anymore". This physician also reviewed the emergency department note in which the patient was tearful and unable or unwilling to provide a significant history. When interviewed by the emergency department nurse, Yarely, the patient was again noted to be very tearful and highly distraught. When interviewed by this physician, the patient once again became very tearful and highly distraught. Apparently she and a boyfriend of several years broke up recently. The patient feels he is the only one that can help her. According to the patient's sister, the mother (who lives in [place]) and the sister are very concerned and have been trying to help the patient with her emotional instability. The patient does admit this is the first time she has cut her wrists. She states hospitalization will not help her. However, she is unable to contract for safety. She describes depressed mood, anhedonia, anxiety, insomnia, feelings of hopelessness, self-injurious behavior, vague suicidal threats, impaired concentration and diminished energy. She is smoking marijuana on a daily basis but denies other drug or alcohol abuse. Tobacco Use In Past 30 Days: Refused To Answer Alcohol Use: Never Hospital Course Patient is a 21-year-old woman, single, unemployed supported by her parents, currently sophomore in college, domiciled in a dorm with her sister, with a past psychiatric history, recent engagement in therapy with a psychologist last summer in [place] for depression, was brought into the ER under [place] act for depression, recent cutting to her right forearm along with suicide ideations in the context of a recent breakup with her boyfriend and daily marijuana use. Patient was transferred to the inpatient psychiatry unit for further observation and management. Patient was started on fluoxetine 10mg PO daily and titrated up to 30mg PO daily for depression and clonazepam 0.5mg PO BID. Patient initially refused treatment and noted to have two episodes of distress which she was having crying spells and later required transfer to a more acute unit due to her behavior. Patient began to comply with treatment, noted to have improved mood, began to engage in groups and activities, future oriented and mood with consistent stability. She no longer endorsed suicidal ideations nor thoughts of self harm, was goal-directed to focus on her studies. She plans on continuing treatment as well as continue with outpatient follow up for continuity of care. Patient will be discharged to [facility]. Patient provided with supportive psychotherapy. Patient advised to call 911 or go to nearest ED in case of emergency. Patient agrees with plan. Results Blood Pressure 102 / 60 Vital Signs Date Time Temp Pulse Resp B/P (MAP) Pulse Ox O2 Delivery O2 Flow Rate FiO2 03/16/17 05:35 98.5 68 17 102/60 (74) 99 Laboratory Results Test 03/09/17 10:09 Cholesterol Level 191 MG/DL (120-200) HDL Cholesterol 48.3 MG/DL (40.0-60.0) Hemoglobin A1c 5.1 % (4.3-6.0) LDL Cholesterol 116 MG/DL (0-99) Triglycerides Level 136 MG/DL (42-150) Summary of Procedures None Pending results at discharge: No Medications # of Antipsychotic meds at D/C: 0 Approp Antipsych med options 1 - Minimum of three failed multiple trials of monotherapy. 2 - Documented plan to taper to monotherapy due to previous use of multiple meds OR cross-taper in progress at D/C. 3 - Documentation of augmentation of Clozapine. 4 - Justification other than those listed in allowable values 1-3, document here : Discharge Discharge Date: Mar 16, 2017 Discharge Diagnosis: (1) Adjustment disorder with depressed mood Diagnosis: Principal ICD Code: F43.21 - Adjustment disorder with depressed mood Pt Condition on Discharge: Stable Discharge Disposition: Discharge Home Discharge Instructions Diet Instructions: As Tolerated, No Restrictions Activities you can perform: Regular-No Restrictions Discharge Time > 30 minutes Mental Status Examination Appearance: Appropriate Consciousness: Alert Orientation: x4 Motor Activity: Normal gait Speech: Unremarkable Language: Adequate Fund of Knowledge: Adequate Attention and Concentration: Adequate Memory: Unremarkable Mood: Appropriate Affect: Appropriate, Other (tearful during interview with speaking about her boyfriend) Thought Process & Associations: Intact, Goal directed, Linear Thought Content: Appropriate Hallucination Type: None Delusion Type: None Suicidal Ideation: No Suicidal Plan: No Suicidal Intention: No Homicidal Ideation: No Homicidal Plan: No Homicidal Intention: No Insight: Adequate Judgment: Adequate Discharge/Advance Care Plan Health Problems: (1) Adjustment disorder with depressed mood Goals to promote your health * To prevent worsening of your condition and complications * To maintain your health at the optimal level Directions to meet your goals Take your medications as prescribed Follow your dietary instruction Follow activity as directed Keep your appointments as scheduled Take your immunizations and boosters as scheduled If your symptoms worsen call your PCP, if no PCP go to Urgent Care Center or Emergency Room For 24/ questions related to your inpatient stay or results of tests pending at discharge, please contact Dr. Asad García at Smoking is Dangerous to Your Health. Avoid second hand smoking Asad García MD Mar 16, 2017 12:10
== END 2017-03-16 15:15 | disposition home or self-care (01) | DRG 881 ==
LOC: NEPJ 11:31 → NEDA 03-08 11:59 → H260 03-08 17:09 → H270 03-11 16:33 → H260 03-14 17:05
PROVIDERS: ADMIT Student in an Organized Health Care Education/Training Program; ATTEND Student in an Organized Health Care Education/Training Program
DX: F43.21 Adjustment disorder with depressed mood (principal); R45.851 Suicidal ideations; F06.1 Catatonic disorder due to known physiological condition; F12.10 Cannabis abuse, uncomplicated; X78.9XXA Intentional self-harm by unspecified sharp object, initial encounter; Y93.9 Activity, unspecified; Z81.8 Family history of other mental and behavioral disorders; S51.811A Laceration without foreign body of right forearm, initial encounter; G47.00 Insomnia, unspecified; F41.9 Anxiety disorder, unspecified
CPT/HCPCS: 80053; 80061; 80307; 82306; 82607; 83036; 84443; 84702; 85025; 93005; 99285; J2060; Q0163